=== PATIENT | female | born 1950 | race Native Hawaiian/Other Pacific Islander ===

== ENCOUNTER 2018-09-20 10:20 | Emergency (ER) | payer OTHER, MEDICARE ==
[~2018-09-20] VITALS: Ht 157.5 cm; Wt 76.7 kg
[~2018-09-20 10:20] MED LIST: FENOFIBRATE43 MG PO; HYDROCHLOROT12.5 M1 PO; METFORMIN ER1000 MG PO; OMEPRAZOLE20 M2 PO
[2018-09-20 12:15] VITALS: BP 122/71; TEMP 98
== END 2018-09-20 12:17 | disposition home or self-care (01) ==
LOC: ED 10:20
DX: N39.0 Urinary tract infection, site not specified (principal)
CPT/HCPCS: 81000; 99282

== ENCOUNTER 2021-11-29 10:24 | Emergency (ER) | payer OTHER, MEDICARE ==
[~2021-11-29] VITALS: Ht 157.5 cm; Wt 76.7 kg
[2021-11-29 10:35] VITALS: TEMP 97.4
[2021-11-29 11:45] VITALS: BP 132/68
== END 2021-11-29 11:45 | disposition home or self-care (01) ==
LOC: ED 10:24
DX: M62.830 Muscle spasm of back (principal); W54.8XXA Other contact with dog, initial encounter; Y92.89 Other specified places as the place of occurrence of the external cause
CPT/HCPCS: 81002; 96372; 99282; J1885